=== PATIENT | male | born 1950 | race Caucasian/White ===

== ENCOUNTER → 2019-05-24 10:20 | Outpatient (BNVA) | payer MEDICARE, OTHER, SELFPAY | PROVIDERS: Family Provider Nurse Practitioner Family; PCP Registered Nurse; Visit Provider Registered Nurse | DX: I10 Essential (primary) hypertension (principal); N52.9 Male erectile dysfunction, unspecified | CPT/HCPCS: 80053; 80061; 85025 ==

== ENCOUNTER 2019-06-14 08:48 | Day surgery (SDC) | payer MEDICARE, OTHER, SELFPAY ==
[2019-06-13 12:25] VITALS: BMI 37.3
--- NOTE | 2019-06-14 09:18 | ANES.PREANE2 ---
Pre-Anesthetic Assessment Pre-Anesthetic Assessment: Height/Weight: Height 1.8 m Weight 121.563 kg Preop Diagnosis: Screening Proposed Procedure: Operation Date: 06/14/19 10:15 Proposed Procedures p Colonoscopy(Not Applicable) - Kennedy Vazquez MD Familial anesthetic complications: NOne Was Beta Carmen taken within 24 hours: N/A Last intake: NPO > 8 hrs Social: Social History: No alcohol and No tobacco Exam: Pre-Anes Outpt Exam: alert, oriented x 3, clear to auscultation bilaterally and regular rate & rhythm Airway: Cervical ROM: WNL MP: 1 Additional comments: missing Pulmonary: Pulmonary: None reported CV/HEM: CV/HEM: None reported : : None reported Hepatic: Hepatic: None reported GI: GI: None reported Metabolic: Metabolic: None reported Musc/skel: Musc/skel: None reported Neuropsych: Neuropsych: None reported Anesthetic Plan: ASA status: 2 Anesthesia: MAC Risk of > 500 ml blood loss (7ml/kg in children): No PFSH Anesthesia PFSH: Social History Smoking and tobacco status: current every day smoker smokeless tobacco Smokeless tobacco user: chewing tobacco Alcohol intake: current Alcohol intake frequency: 0-2 Drinks per Day Alcohol type: beer Household members: spouse Marital status: Current occupational status: retired History of recent travel: No Data Anesthesia Cardiac Studies: No Data to Display
[2019-06-14 09:56] VITALS: BP 139/67; PULSE 80; RESP 18; TEMP 36.4; O2SAT 97
[2019-06-14] MEDS: sodium chloride 0.9% 1,000 ML 30 ML (10:05)
--- NOTE | 2019-06-14 10:38 | W.PM.OPSUD ---
Surgery/Procedure H&P Update DATE OF PROCEDURE: June 14, 2019 DATE H&P PERFORMED: 06/01/19 H&P UPDATE INFORMATION: I have reviewed H&P completed within last 30 days, I have examined patient prior to procedure and No changes to prior documentation PREOP DIAGNOSIS: History of colon polyps PRIMARY INDICATION FOR PROCEDURE: The same PLANNED PROCEDURE: Operation Date: 06/14/19 10:15 Proposed Procedures p Colonoscopy(Not Applicable) - Kennedy Vazquez MD
--- NOTE | 2019-06-14 11:50 | SUR.OPER ---
4 ml of ink placed in ascending colon bx site,
--- NOTE | 2019-06-14 11:52 | SUR.OPER ---
2 clips placed at ascending polyp bx site
[2019-06-14 12:02] VITALS: BP 106/76; PULSE 85; RESP 16; TEMP 36.8; O2SAT 97
[2019-06-14 12:24] VITALS: BP 103/80; PULSE 84; RESP 16; O2SAT 97
--- NOTE | 2019-06-14 12:34 | ANE.PACU2 ---
 Inpatient post-anesthesia follow up: Airway intact: Yes Vital signs: Temperature 98.2 F Pulse Rate 84 Respiratory Rate 16 Blood Pressure 103/80 Pulse Oximetry 97 Oxygen Delivery Me thod Room Air Oxygen Flow Rate 2 Fraction of Inspir ed Oxygen Hydration adequate: Yes Nausea and vomiting: No Pain level: 1 Mental status: Baseline
== END 2019-06-14 12:33 | disposition home or self-care (01) ==
PROVIDERS: Family Provider Nurse Practitioner Family; PCP Registered Nurse; Visit Provider Surgery
PROC: 0DJD8ZZ Inspection of Lower Intestinal Tract, Via Natural or Artificial Opening Endoscopic (ICD-10-PCS; CPT 45378; principal; 2019-06-14 10:15)
DX: Z12.11 Encounter for screening for malignant neoplasm of colon (principal); D12.2 Benign neoplasm of ascending colon; Z86.010 Personal history of colon polyps; Z82.49 Family history of ischemic heart disease and other diseases of the circulatory system; Z83.3 Family history of diabetes mellitus; F17.220 Nicotine dependence, chewing tobacco, uncomplicated
CPT/HCPCS: 12345; 45385; 88305; J2704; J7030

== ENCOUNTER → 2019-07-10 10:35 | Outpatient (BNVA) | payer MEDICARE, OTHER, SELFPAY | PROVIDERS: Family Provider Nurse Practitioner Family; PCP Registered Nurse; Visit Provider Registered Nurse | DX: R73.9 Hyperglycemia, unspecified (principal); I10 Essential (primary) hypertension; R06.02 Shortness of breath; E66.9 Obesity, unspecified | CPT/HCPCS: 36416; 82962 ==

== ENCOUNTER → 2019-07-21 11:58 | Outpatient (BNVA) | payer MEDICARE, OTHER, SELFPAY | PROVIDERS: Family Provider Nurse Practitioner Family; PCP Registered Nurse; Visit Provider Registered Nurse | DX: E78.5 Hyperlipidemia, unspecified (principal) | CPT/HCPCS: 80061 ==

== ENCOUNTER 2019-08-29 11:22 | Outpatient (CLI) | payer MEDICARE, OTHER, SELFPAY ==
[2019-08-29 11:52] VITALS: BMI 37.3
[2019-08-29 12:08] VITALS: BP 176/86; PULSE 100
--- NOTE | 2019-10-05 10:48 | ECG_ITS ---
NAME OF STUDY: TREADMILL STRESS TEST INDICATION: Chest Pain, EXERCISE DATA: The patient was exercised by Jacek protocol. Baseline heart rate was 76 beats per minute. Baseline blood pressure was 148/68 millimeters of mercury. Target heart rate was 153 beats per minute. Maximum heart rate achieved was 155, which was 101 % of the target heart rate. Maximum blood pressure was 219/73 millimeters of mercury. Total exercise time was 3 minutes 37 seconds. Maximum METs achieved was 7.0, maximum VO2 was 24.5. The reason for ending the test was maximum effort achieved. The patient complained of shortness of breath during the stress test, which then resolved at the end of the test. ELECTROCARDIOGRAM: BASELINE: Showed sinus rhythm, normal axis, no significant ST-T changes at the baseline noted. EXERCISE: At the peak exercise level, no significant ST-T changes suggestive of ischemia noted. PVCs were noted not very frequent. RECOVERY: During the recovery period, heart rate dropped appropriately. No significant ST-T changes in the recovery suggestive of ischemia noted. CONCLUSION: 1. Exercise capacity poor. 2. Heart rate response was appropriate. 3. Blood pressure response was hypertensive. 4. Symptoms not suggestive of ischemia. 5. Electrocardiogram portion of the stress test was not suggestive of ischemia. 6. Nuclear scan will be documented separately. Please note that due to underachievement of METs and poor exercise capacity specificity and sensitivity of EKG portion of stress test will be low. Electronically Signed On 10-07-2019 13:29:49 CDT by Fabiana Steele M.D. [email or web address]
== END 2019-08-29 11:23 | disposition home or self-care (01) ==
PROVIDERS: Family Provider Nurse Practitioner Family; PCP Registered Nurse; Visit Provider Registered Nurse
DX: R06.02 Shortness of breath (principal)
CPT/HCPCS: 93017

== ENCOUNTER 2019-11-17 09:58 | Outpatient (CLI) | payer MEDICARE, OTHER, SELFPAY ==
--- NOTE | 2019-11-17 10:07 | USCV_ITS ---
Emily Donovan Age: 68 Gender: M : 1950 Exam Date: 11/17/2019 10:01 Ordering Phys: Kip Lee MD ([email or web address] [email or web address] Technologist: Lesli Cazares [place] [facility] [place]ication: CAROTID STENOSIS Risk Factors: None Previous Vascular Surgery: None Right Brachial BP: / Left Brachial BP: / Right Left Velocity (cm/s) Spectral Plaque Velocity (cm/s) Spectral Plaque Syst/Diast Broadening Syst/Diast Broadening 112.50/19.80 Prox CCA 119.60/ 23.00 92.60/ 16.50 Mid CCA 131.70/ 25.40 77.70/ 17.10 Distal CCA 77.90 / 14.20 83.50/ 17.10 Prox ICA 82.00 / 12.10 104.90/34.30 Mid ICA 83.00 / 17.20 127.60/42.10 Distal ICA 94.10 / 27.30 121.30 ECA 97.20 1.38 ICA/CCA 0.71 Antegrade Vertebral Antegrade 39.70/ 11.00 cm/s 44.20/ 10.70 cm/s Tri Subclavian Tri 137.8 176.9 0 0 FINDINGS Comparison: none available. No significant elevation of systolic or diastolic velocities. Waveforms are normal. No significant amount of calcified plaque or intimal thickening identified. CONCLUSIONS Normal carotid doppler ultrasound. Dr. Zahida Flor DO (Electronically Signed) Final Date: 17 November 2019 13:29 S
--- NOTE | 2019-11-17 10:07 | USCV_ITS ---
Madalynizabella Donovan Age: 68 Gender: M : 1950 Exam Date: 11/17/2019 10:29 Ordering Phys: Kip Lee MD (Andy) ([email or web address]) Technologist: Lesli Cazraes [place] [facility] [place]: Hypertension BP: 135 / 90 HR: 82 Rhythm: Sinus Technical Quality: Suboptimal MEASUREMENTS (Male / Female) Normal Values 2D ECHO LV Diastolic Diameter PLAX 4.6 cm 4.2 - 5.9 / 3.9 - 5.3 cm LV Systolic Diameter PLAX 3.0 cm LV Chamber Size 4.1 cm IVS Diastolic Thickness 1.3 cm 0.6 - 1.0 / 0.6 - 0.9 cm IVS Systolic Thickness 1.6 cm LVPW Diastolic Thickness 0.8 cm 0.6 - 1.0 / 0.6 - 0.9 cm LVPW Systolic Thickness 1.1 cm RV Chamber Size 2.9 cm LVOT Diameter 2.1 cm LV Ejection Fraction 2D Teich 65.1 % LV Ejection Fraction MOD 2C 56.7 % LV Ejection Fraction 2C AL 55.8 % LA Diameter 3.4 cm LA Width 3.0 cm LA Height 5.6 cm RA Width 2.3 cm RA Height 4.9 cm Aorta at Sinotubular Diameter 2.7 cm M-MODE LV Diastolic Diameter MM 5.3 cm 4.2 - 5.9 / 3.9 - 5.3 cm LV Systolic Diameter MM 3.9 cm LV Ejection Fraction MM Teich 53.0 % IVS Diastolic Thickness MM 1.2 cm 0.6 - 1.0 / 0.6 - 0.9 cm IVS Systolic Thickness MM 1.9 cm LVPW Diastolic Thickness MM 1.3 cm 0.6 - 1.0 / 0.6 - 0.9 cm LVPW Systolic Thickness MM 1.9 cm Aortic Annulus Diameter 3.0 cm LA Ao Ratio MM 1.1 MV E Point Septal Separation 0.4 cm DOPPLER AV Peak Velocity 163.0 cm/s LVOT Peak Velocity 110.0 cm/s AV Area Cont Eq vti 2.4 cm squared AV Area Cont Eq pk 2.3 cm squared MV Area PHT 4.5 cm squared Mitral E to A Ratio 1.1 MV E' Velocity 12.0 cm/s Mitral E to MV E' Ratio 8.6 Mitral E to LV E' Lateral Ratio 7.6 Mitral E to LV E' Septal Ratio 10.0 TV Peak E Velocity 48.0 cm/s Right Atrial Pressure 3.0 mmHg FINDINGS Left Ventricle Normal left ventricular size, systolic function and wall thickness, with no regional wall motion abnormalities. Left ventricular ejection fraction is estimated at 65 %. Normal diastolic function. Right Ventricle Normal right ventricular size and systolic function. Right Atrium Normal right atrial size. Right atrial pressure estimated at 3 mm Hg. Left Atrium Normal left atrial size. Mitral Valve Structurally normal mitral valve. No mitral valve stenosis. No mitral valve regurgitation. Aortic Valve Aortic valve not well visualized. No aortic valve stenosis. No aortic valve regurgitation. Tricuspid Valve Tricuspid valve not well visualized. No tricuspid valve regurgitation. Pulmonic Valve Pulmonic valve not well visualized. Pericardium No pericardial effusion. Aorta Normal sized aortic root. CONCLUSIONS 1. Normal left ventricular size, systolic function and wall thickness, with no regional wall motion abnormalities. Left ventricular ejection fraction is estimated at 65 %. Normal diastolic function. 2. No significant valvular abnormality. 3. No prior similar studies to compare. Danika Bowers MD (Electronically Signed) Final Date: 18 November 2019 18:27 S
== END 2019-11-17 09:59 | disposition home or self-care (01) ==
LOC: RAD 10:03
PROVIDERS: Family Provider Nurse Practitioner Family; PCP Registered Nurse; Visit Provider Thoracic Surgery (Cardiothoracic Vascular Surgery)
DX: I10 Essential (primary) hypertension; I65.29 Occlusion and stenosis of unspecified carotid artery
CPT/HCPCS: 93306; 93880

== ENCOUNTER → 2020-09-13 14:30 | Outpatient (BNVA) | payer MEDICARE, OTHER, SELFPAY | PROVIDERS: Family Provider Nurse Practitioner Family; PCP Registered Nurse; Visit Provider Surgery | DX: Z20.822 Contact with and (suspected) exposure to COVID-19 (principal) | CPT/HCPCS: 87635 ==

== ENCOUNTER 2020-09-18 07:43 | Day surgery (SDC) | payer MEDICARE, OTHER, SELFPAY ==
[2020-09-17 08:48] VITALS: BMI 36.6
--- NOTE | 2020-09-18 07:54 | ANES.PREANE2 ---
Pre-Anesthetic Assessment Pre-Anesthetic Assessment: Height/Weight: Height 1.78 m Weight 115.666 kg Preop Diagnosis: History of colon polyps Proposed Procedure: Operation Date: 09/18/20 09:00 Proposed Procedures p Colonoscopy 21384 z86.010(Not Applicable) - Kennedy Vazqeuz MD Familial anesthetic complications: None Was Beta Carmen taken within 24 hours: N/A Was Clonidine taken within 24 hours: N/A Last intake: > 8 hrs Social: Social History: Alcohol and No tobacco Comment: 1-2 beers daily Exam: Pre-Anes Outpt Exam: alert, oriented x 3, clear to auscultation bilaterally and regular rate & rhythm Airway: Cervical ROM: WNL MP: 2 Dentition: Chipped (lower and upper L side) Pulmonary: Pulmonary: TATUM CV/HEM: CV/HEM: HTN Comments: 10/13 stress test negative for ischemia but HR/METS not achieved 2019 echo CONCLUSIONS 1. Normal left ventricular size, systolic function and wall thickness, with no regional wall motion abnormalities. Left ventricular ejection fraction is estimated at 65 %. Normal diastolic function. 2. No significant valvular abnormality. 3. No prior similar studies to compare Metabolic: Metabolic: Hyperlipidemia Neuropsych: Neuropsych: TIA Anesthetic Plan: ASA status: 3 Anesthesia: MAC Risk of > 500 ml blood loss (7ml/kg in children): No PFSH Anesthesia PFSH: Medical History Carotid arterial disease HTN (hypertension) with goal to be determined Surgical History H/O colonoscopy 12/19/[address] Gomes Family History Mother CAD (coronary artery disease) Denies family history of Diabetes Anesthesia complication Bleeding disorder Cancer Social History Smoking and tobacco status: current every day smoker smokeless tobacco Smokeless tobacco user: chewing tobacco Alcohol intake: current Alcohol intake frequency: 0-2 Drinks per Day Alcohol type: beer Household members: spouse Marital status: Current occupational status: retired History of recent travel: No Data Anesthesia Cardiac Studies: No Data to Display
[2020-09-18 08:45] VITALS: BP 146/76; PULSE 72; RESP 18; TEMP 36.3; O2SAT 98
[2020-09-18] MEDS: sodium chloride 0.9% 1,000 ML 30 ML IV (09:10)
--- NOTE | 2020-09-18 09:53 | P.HP_ITS ---
Same Day Surgery H&P Indication for Procedure/HPI DATE OF PROCEDURE: September 18, 2020 CHIEF COMPLAINT/INDICATIONFOR SURGICAL PROCEDURE: Colon polyps PREOP DIAGNOSIS: History of colon polyps PLANNED PROCEDRUE: Operation Date: 09/18/20 09:00 Proposed Procedures p Colonoscopy 38974 z86.010(Not Applicable) - Kennedy Vazquez MD Patient comes today with history of colon polyps and he comes today to discuss surveillance colonoscopy. He denies any bleeding per rectum and last colonoscopy was done back in 2019 and was found to have an ascending colon polyp that was large and pathology did show; Ascending colon polyp, biopsies: 1. Artifacted colonic mucosa with focal changes of probable tubular adenoma 2. No malignancy identified Because of the large of the polyp patient was advised to have a surveillance colonoscopy in 1 year Interim history 09/18/2020 Patient comes today for surveillance colonoscopy ROS All systems have been reviewed negative except as per the above or per problem list Medications/Allergies* Home Medications Medication Instructions Recorded Confirmed Type aspirin 81 mg tablet,delayed 81 mg PO DAILY 07/21/19 09/17/20 History release atorvastatin 80 mg PO DAILY 09/17/20 09/18/20 History clopidogrel 75 mg PO DAILY 09/17/20 09/17/20 History Allergies/Adverse Reactions Allergy/AdvReac Type Severity Reaction Status Date / Time No Known Allergies Allergy Verified 08/10/20 09:24 Current Medications: Generic Name Dose Route Start Last Admin Trade Name Freq PRN Reason Stop Dose Admin Sodium Chloride 1,000 mls @ 30 mls/hr 09/18/20 08:00 09/18/20 09:10 Sodium Chloride 0.9% IV 09/19/20 07:59 30 mls/hr .Q24H SHERRY Administration Pertinent History/Comorbid Conditions* Medical History (Updated 11/01/19 @ 18:27 by Fabiana Steele MD) Carotid arterial disease HTN (hypertension) with goal to be determined Surgical History (Updated 06/02/19 @ 08:11 by Kennedy Vazquez MD) H/O colonoscopy 12/19/[address] Gomes Family History (Updated 06/01/19 @ 10:16 by Desiree Vazquez LPN) CAD (coronary artery disease) Mother Denies family history of Diabetes Anesthesia complication Bleeding disorder Cancer Social History Smoking and tobacco status: current every day smoker smokeless tobacco Smokeless tobacco user: chewing tobacco Alcohol intake: current Alcohol intake frequency: 0-2 Drinks per Day Alcohol type: beer Household members: spouse Marital status: Current occupational status: retired History of recent travel: No Pertinent Exam Findings alert, oriented x 3, clear to auscultation bilaterally, regular rate & rhythm and procedure specific exam findings Recommendations Surgery/Procedure today (Surveillance colonoscopy) Other Plans: Plan of care; After thorough history and physical examination and reviewing the chart, plan to perform surveillance colonoscopy. I discussed with the patient in details the risks,benefits,alternatives and i ndications.The risk of aspiration, bleeding, soft tissue injury, perforation of the colon and other potential concomitant complications were explained to the patient in details,also the potential need for Laproscoy/Laparotomy to repair any related complications including but not limited to colectomy and or Closotomy.The patient understood this well and did agree to proceed. Rationale was carefully and clearly discussed with the patient.Appropriate informed consent have been reviewed and signed All questions have been answered and all concerns have been addressed to patient's satisfaction. Verbal and written Instructions were given to the patient for colonoscopy prep Coding Level of Care Code Acute Process Control Technician for Taylor Stout
[2020-09-18 10:35] VITALS: BP 123/77; PULSE 75; RESP 18; TEMP 36.3
--- NOTE | 2020-09-18 10:35 | ANE.PACU2 ---
Inpatient post-anesthesia follow up: Airway intact: Yes Vital signs: Temperature 97.4 F Pulse Rate 72 Respiratory Rate 18 Blood Pressure 146/76 Pulse Oximetry 98 Oxygen Delivery Me thod Room Air Oxygen Flow Rate Fraction of Inspir ed Oxygen Hydration adequate: Yes Nausea and vomiting: No Pain level: 1 Mental status: Baseline
[2020-09-18 10:49] VITALS: BP 121/93; PULSE 76; RESP 18; TEMP 36.4; O2SAT 93
== END 2020-09-18 11:04 | disposition home or self-care (01) ==
PROVIDERS: PCP Registered Nurse; Visit Provider Surgery
PROC: 0DJD8ZZ Inspection of Lower Intestinal Tract, Via Natural or Artificial Opening Endoscopic (ICD-10-PCS; CPT 45378; principal; 2020-09-18 09:00)
DX: D12.2 Benign neoplasm of ascending colon (principal); Z86.010 Personal history of colon polyps; Z79.82 Long term (current) use of aspirin; I10 Essential (primary) hypertension; Z82.49 Family history of ischemic heart disease and other diseases of the circulatory system; F17.220 Nicotine dependence, chewing tobacco, uncomplicated; I25.10 Atherosclerotic heart disease of native coronary artery without angina pectoris
CPT/HCPCS: 45380; 88305; 96360; 96361; J2704; J7030

== ENCOUNTER → 2021-10-08 08:53 | Outpatient (BNVA) | payer MEDICARE, OTHER, SELFPAY | PROVIDERS: PCP Registered Nurse; Visit Provider Registered Nurse | DX: Z00.00 Encounter for general adult medical examination without abnormal findings (principal); E78.5 Hyperlipidemia, unspecified; I10 Essential (primary) hypertension; Z12.5 Encounter for screening for malignant neoplasm of prostate; E66.9 Obesity, unspecified; Z71.3 Dietary counseling and surveillance; Z71.85 Encounter for immunization safety counseling | CPT/HCPCS: 80053; 80061; 85025; G0103 ==